=== PATIENT | male | born 1990 | race Caucasian/White ===

== ENCOUNTER 2017-01-11 13:11 | Emergency (ER) | payer OTHER ==
[2017-01-11 13:29] VITALS: BP 157/92
[2017-01-11] MEDS ORDERED: ceFAZolin 1 GM Vial IM ONE (13:44)
--- NOTE | 2017-01-11 13:52 | EDM.PDOC ---
ED HPI GENERAL MEDICAL PROBLEM - General Chief Complaint: Upper Extremity Injury/Pain Stated Complaint: LEFT INDEX FINGER INJURY Time Seen by Provider: 01/11/17 13:36 Source of Information: Reports: Patient History Limitations: Reports: No Limitations - History of Present Illness INITIAL COMMENTS - FREE TEXT/NARRATIVE: Patient is a 26 y/o male who presents to the E.D. complaining of crush injury to the distal phalanx lateral aspect of the left index finger. Patient states while removing a heavy large metal pivot point on the oil rig his affected finger got pinched between two pieces of metal. This occurred approx 2 hrs prior to admission to the E.D. Bone is exposed. Pain is minimal. He is able to flex and extend the dip/pip/mcp of the affected finger. No pain to the remaining fingers and/or hand. Bleeding is controlled with dressing in place. Tetanus status is up to date. PMH: ADHD Medications: Adderall. SH: none stated. No smoking history. Last meal at 0700 hrs this a.m. Left Hand Pain Score (Numeric/FACES): 3 - Related Data Allergies Allergy/AdvReac Type Severity Reaction Status Date / Time No Known Allergies Allergy Verified 01/11/17 13:28 Home Meds: Home Meds Dextroamphetamine/Amphetamine [Adderall 20 mg Tablet] 20 mg PO DAILY 01/11/17 [ History] Past Medical History Musculoskeletal History: Reports: Other (See Below) Other Musculoskeletal History: metal plates to face and elbow - Past Surgical History HEENT Surgical History: Reports: Oral Surgery Social & Family History - Tobacco Use Smoking Status *Q: Current Some Day Smoker Years of Tobacco use: 7 Packs/Tins Daily: 0.1 Second Hand Smoke Exposure: No - Caffeine Use Caffeine Use: Reports: Coffee, Soda - Alcohol Use Days Per Week of Alcohol Use: 2 Number of Drinks Per Day: 2 Total Drinks Per Week: 4 - Recreational Drug Use Recreational Drug Use: No Review of Systems - Review of Systems Review Of Systems: ROS reveals no pertinent complaints other than HPI. ED EXAM, GENERAL - Physical Exam Exam: See Below Exam Limited By: No Limitations General Appearance: Alert, WD/WN, No Apparent Distress Ears: Hearing Grossly Normal Nose: Normal Inspection Throat/Mouth: Normal Voice, No Airway Compromise Respiratory/Chest: No Respiratory Distress, No Accessory Muscle Use Cardiovascular: Normal Peripheral Pulses, Regular Rate, Rhythm Peripheral Pulses: 2+: Radial (R) Extremities: Limited Range of Motion, Other (Left index finger distal tip: Loss of tissue with bone exposed sparing the nail bed. This is located on the lateral aspect of the finger. He is able to flex and extend the DIP and PIP. Minimal pain present. No pain to the remainder fingers or hand.) Neurological: Alert, Oriented, CN II-XII Intact, Normal Cognition, No Motor/ Sensory Deficits Psychiatric: Normal Affect, Normal Mood Course - Vital Signs Last Recorded V/S: Last Vital Signs Temp 98.0 F 01/11/17 13:26 Pulse 70 01/11/17 13:26 Resp 16 01/11/17 13:26 BP 157/92 H 01/11/17 13:26 Pulse Ox 97 01/11/17 13:26 - Orders/Labs/Meds Orders: Active Orders 24 hr Category Date Time Status Fingers Second Digit Lt F1 [CR] Stat Exams 01/11/17 13:44 Taken Meds: Medications Discontinued Medications Generic Name Dose Route Start Last Admin Trade Name Selin PRN Reason Stop Dose Admin Bupivacaine HCl 10 ml 01/11/17 13:55 01/11/17 14:02 Sensorcaine-Mpf 0.5% INJECT 01/11/17 13:56 10 ml ONETIME ONE Administration Cefazolin Sodium 1 gm 01/11/17 13:44 01/11/17 14:02 Ancef IM 01/11/17 13:45 1 gm ONETIME ONE Administration - Re-Assessments/Exams Free Text/Narrative Re-Assessment/Exam: Order x-ray of the left index finger and ancef 1 gram IM. Will perform digital block to mitigate pain present with soaking snd removal of dressing. No ortho building construction supervisor here in [place]. Will contact ortho building construction supervisor at [facility]. Ordered marcaine 0.5% to perform digital block. Please approximate 6 ml of Marcaine to the inferior border of the finger. Patient states he had complete numbness to the finger with no discomfort noted with palpation to the distal tip. 01/11/17 13:[address] Reed with [facility] at [facility]. He will see the patient in the E.D. X-ray will be pushed when available. X-ray did not reveal any acute bony abnormalities. Images pushed to [facility]. Discharge instructions as documented. Departure - Departure Time of Disposition: 13:57 Disposition: DC/Tfer to Acute Hospital 02 Condition: Good Clinical Impression: Laceration of finger Qualifiers: Encounter type: initial encounter Finger: index finger Damage to nail status: without damage Foreign body presence: without foreign body Laterality: left Qualified Code(s): S61.211A - Laceration without foreign body of left index finger without damage to nail, initial encounter - Discharge Information Instructions: Crush Injury, Fingers or Toes, [id number] Referrals: Devonte Reed MD [Ordering Only Provider] - Forms: ED Department Discharge Additional Instructions: Leave dressing and splint in place until evaluated by Dr. Reed in the [facility] in [place] today. Go straight to the E.D. upon discharge from here. Do not eat or drink anything while traveling to [place]. - My Orders Last 24 Hours: My Active Orders 01/11/17 13:44 Fingers Second Digit Lt F1 [CR] Stat - Assessment/Plan Last 24 Hours: My Active Orders 01/11/17 13:44 Fingers Second Digit Lt F1 [CR] Stat
[2017-01-11] MEDS ORDERED: Bupivacaine 0.5% 10 ML SDV INJECT ONE (13:55)
--- NOTE | 2017-01-11 16:55 | CR ---
Left second finger: Four views of the left second finger were obtained. Soft tissue defect identified off the distal second finger. No fracture or other bony abnormality is seen. Impression: 1. Soft tissue defect within the distal left second finger. 2. No acute bony abnormality is identified. Diagnostic code #3
== END 2017-01-11 14:45 ==
LOC: JD.ED 13:11
DX: S61.211A Laceration without foreign body of left index finger without damage to nail, initial encounter (principal); F17.210 Nicotine dependence, cigarettes, uncomplicated; W23.1XXA Caught, crushed, jammed, or pinched between stationary objects, initial encounter
CPT/HCPCS: 64450; 73140; 96372; 99284; J0690

== ENCOUNTER 2019-03-28 11:42 | Emergency (ER) | payer OTHER ==
[2019-03-28 12:33] VITALS: BP 156/108; PULSE 76
--- NOTE | 2019-03-28 12:35 | EDM.PDOC ---
ED HPI GENERAL MEDICAL PROBLEM - General Chief Complaint: Upper Extremity Injury/Pain Stated Complaint: NEEDS PAIN MEDS Time Seen by Provider: 03/28/19 12:26 Source of Information: Reports: Patient History Limitations: Reports: No Limitations - History of Present Illness INITIAL COMMENTS - FREE TEXT/NARRATIVE: The patient presents with left middle finger pain. He recently had a finger amputated in [place] at work. He was seen at the hospital there and sent to [facility]. Dr Posadas reattached the finger. He was given 20 hydrocodones 5mg. They are only helping for a few hours and he is going to run out. His hand and wrist is in a splint. Onset: Sudden Duration: Day(s): Location: Reports: Upper Extremity, Left (middle finger) Quality: Reports: Sharp Severity: Severe Improves with: Reports: None Worsens with: Reports: None Associated Symptoms: Reports: No Other Symptoms Left Hand Pain Score (Numeric/FACES): 7 - Related Data Allergies Allergy/AdvReac Type Severity Reaction Status Date / Time No Known Allergies Allergy Verified 03/28/19 12:25 Home Meds: Home Meds Dextroamphetamine/Amphetamine [Adderall 20 mg Tablet] 20 mg PO DAILY 01/11/17 [ History] Hydrocodone/Acetaminophen [Hydrocodon-Acetaminophen 5-325] 1 tab PO Q6H PRN [History] Stool Softener. 03/28/19 [History] oxyCODONE HCl/Acetaminophen [Percocet 5-325 mg Tablet] 1 - 2 each PO Q6HR PRN # 20 tablet 03/28/19 [Rx] Past Medical History Musculoskeletal History: Reports: Other (See Below) Other Musculoskeletal History: metal plates to face and elbow - Past Surgical History HEENT Surgical History: Reports: Oral Surgery Social & Family History - Caffeine Use Caffeine Use: Reports: Coffee, Soda Review of Systems - Review of Systems Review Of Systems: See Below Constitutional: Reports: No Symptoms Eyes: Reports: No Symptoms Ears: Reports: No Symptoms Nose: Reports: No Symptoms Mouth/Throat: Reports: No Symptoms Respiratory: Reports: No Symptoms Cardiovascular: Reports: No Symptoms GI/Abdominal: Reports: No Symptoms Genitourinary: Reports: No Symptoms Musculoskeletal: Reports: Other (left hand pain) ED EXAM, GENERAL - Physical Exam Exam: See Below Exam Limited By: No Limitations General Appearance: Alert, No Apparent Distress Ears: Normal External Exam Nose: Normal Inspection Head: Atraumatic, Normocephalic Neck: Normal Inspection Respiratory/Chest: No Respiratory Distress Extremities: Other (Left hand and arm is in a splint.) Course - Vital Signs Last Recorded V/S: Last Vital Signs Temp 98.7 F 03/28/19 12:27 Pulse 76 03/28/19 12:27 Resp 16 03/28/19 12:27 BP 156/108 H 03/28/19 12:27 Pulse Ox 98 03/28/19 12:27 - Re-Assessments/Exams Free Text/Narrative Re-Assessment/Exam: 03/28/19 12:35 I will get him some percocets. Departure - Departure Time of Disposition: 12:40 Disposition: Home, Self-Care 01 Condition: Good Clinical Impression: Amputation of left middle finger - Discharge Information *PRESCRIPTION DRUG MONITORING PROGRAM REVIEWED*: No *COPY OF PRESCRIPTION DRUG MONITORING REPORT IN PATIENT ESTEFANY: No Prescriptions: oxyCODONE HCl/Acetaminophen [Percocet 5-325 mg Tablet] 1 - 2 each PO Q6HR PRN # 20 tablet PRN Reason: Pain Referrals: PCP,None [Primary Care Provider] - Forms: ED Department Discharge Additional Instructions: Take your medication as prescribed. Elevate your hand above your heart as much as you can for the next couple of days. Please return if you are worse. Sepsis Event Note - Focused Exam Vital Signs: Vital Signs Temp Pulse Resp BP Pulse Ox 03/28/19 12:27 98.7 F 76 16 156/108 H 98 Date Exam was Performed: 03/28/19 Time Exam was Performed: 12:35
== END 2019-03-28 13:00 | disposition home or self-care (01) ==
LOC: JD.ED 11:42
DX: M79.645 Pain in left finger(s) (principal); Z89.022 Acquired absence of left finger(s)
CPT/HCPCS: 99283

== ENCOUNTER 2020-12-26 10:58 | Emergency (ER) | payer MEDICAID, OTHER | END 2020-12-26 12:00 | disposition left against medical advice (07) | LOC: JD.ED 10:58 | DX: Z53.21 Procedure and treatment not carried out due to patient leaving prior to being seen by health care provider (principal) ==

== ENCOUNTER 2021-01-01 18:41 | Emergency (ER) | payer MEDICAID ==
--- NOTE | 2021-01-01 19:43 | EDM.PDOCBH ---
ED HPI GENERAL MEDICAL PROBLEM - General Chief Complaint: Behavioral/Psych Stated Complaint: DIFFICULTY SLEEPING Time Seen by Provider: 01/01/21 18:48 Source of Information: Reports: Patient, Other ([facility] staff) History Limitations: Reports: No Limitations - History of Present Illness INITIAL COMMENTS - FREE TEXT/NARRATIVE: The patient presents with a staff member from [facility] crisis center for suicidal ideation. The patient works at [employer] and he talked to a provider there and he was referred to [facility]. He was put in their RCC and he was going to see Dr Villar tomorrow. His suicidal thoughts have gotten worse. He plans on shooting himself with a shotgun. He has the shotgun in a locked case and gave it to someone recently. He did suffer some emotional trauma in the past and recently broke up with his long time girlfriend. He would not go into detail about the emotional trauma in the past. He has felt depressed for years. He did try taking some pills this past weekend. He does not remember exactly what they were. He has no fever, chills, cough, chest pain, shortness of breath, abdominal pain, nausea or vomiting. He has no medical problems Onset: Gradual Duration: Week(s): Severity: Severe Improves with: Reports: None Worsens with: Reports: None Associated Symptoms: Reports: No Other Symptoms Headache Pain Score (Numeric/FACES): 3 - Related Data Allergies Allergy/AdvReac Type Severity Reaction Status Date / Time No Known Allergies Allergy Verified 03/28/19 12:25 Home Meds: Home Meds Dextroamphetamine/Amphetamine [Adderall 20 mg Tablet] 20 mg PO DAILY 01/11/17 [History] Hydrocodone/Acetaminophen [Hydrocodon-Acetaminophen 5-325] 1 tab PO Q6H PRN 03/28/19 [History] oxyCODONE HCl/Acetaminophen [Percocet 5-325 mg Tablet] 1 - 2 each PO Q6HR PRN #20 tablet 03/28/19 [Rx] Past Medical History Musculoskeletal History: Reports: Other (See Below) Other Musculoskeletal History: metal plates to face and elbow Psychiatric History: Reports: Anxiety, Depression, Suicidal Ideation Other Psychiatric History: took pain meds on saturday and then vomited them up - Infectious Disease History Infectious Disease History: Reports: Chicken Pox - Past Surgical History HEENT Surgical History: Reports: Oral Surgery Social & Family History - Tobacco Use Tobacco Use Status *Q: Former Tobacco User Used Tobacco, but Quit: Yes Month/Year Tobacco Last Used: yesterday - Caffeine Use Caffeine Use: Reports: Coffee, Soda ED ROS GENERAL - Review of Systems Review Of Systems: See Below Constitutional: Reports: No Symptoms HEENT: Reports: No Symptoms Respiratory: Reports: No Symptoms Cardiovascular: Reports: No Symptoms Endocrine: Reports: No Symptoms GI/Abdominal: Reports: No Symptoms : Reports: No Symptoms Musculoskeletal: Reports: No Symptoms ED EXAM, BEHAVIORAL HEALTH - Physical Exam Exam: See Below Exam Limited By: No Limitations General Appearance: Alert, No Apparent Distress Ears: Normal External Exam Nose: Normal Inspection Head: Atraumatic, Normocephalic Neck: Normal Inspection Respiratory/Chest: No Respiratory Distress, Lungs Clear, Normal Breath Sounds Cardiovascular: Regular Rate, Rhythm, No Edema, No Murmur GI/Abdominal: Soft, Non-Tender, No Organomegaly, No Mass COURSE, BEHAVIORAL HEALTH COMP - Course Orders, Labs, Meds: Active Orders 24 hr Category Date Time Status Cardiac Monitoring [RC] . DIRECTED Care 01/01/21 19:06 Active Suicide Precautions [RC] .Per Facility Policy Care 01/01/21 19:10 Active DRUG SCREEN, URINE [URCHEM] Stat Lab 01/01/21 20:25 Ordered Laboratory Tests 01/01/21 01/01/21 01/01/21 Range/Units 19:12 19:30 19:30 WBC 7.85 (4.23-9.07) K/mm3 RBC 5.11 (4.63-6.08) M/mm3 Hgb 15.8 (13.7-17.5) gm/dl Hct 46.7 (40.1-51.0) % MCV 91.4 D (79.0-92.2) fl MCH 30.9 (25.7-32.2) pg MCHC 33.8 (32.2-35.5) g/dl RDW Std Deviation 40.7 (35.1-43.9) fL Plt Count 260 (163-337) K/mm3 MPV 10.9 (9.4-12.3) fl Neut % (Auto) 64.3 (34.0-67.9) % Lymph % (Auto) 23.7 (21.8-53.1) % Loving % (Auto) 8.2 (5.3-12.2) % Eos % (Auto) 3.1 (0.8-7.0) Baso % (Auto) 0.3 (0.1-1.2) % Neut # (Auto) 5.06 (1.78-5.38) K/mm3 Lymph # (Auto) 1.86 (1.32-3.57) K/mm3 Loving # (Auto) 0.64 (0.30-0.82) K/mm3 Eos # (Auto) 0.24 (0.04-0.54) K/mm3 Baso # (Auto) 0.02 (0.01-0.08) K/mm3 Sodium 142 (136-145) mEq/L Potassium 3.2 L (3.5-5.1) mEq/L Chloride 104 (98-107) mEq/L Carbon Dioxide 28 (21-32) mEq/L Anion Gap 13.2 (5-15) BUN 13 (7-18) mg/dL Creatinine 0.9 (0.7-1.3) mg/dL Est Cr Clr Drug Dosing 120.29 mL/min Estimated GFR (MDRD) > 60 (>60) mL/min BUN/Creatinine Ratio 14.4 (14-18) Glucose 119 H (70-99) mg/dL Calcium 8.5 (8.5-10.1) mg/dL Total Bilirubin 0.2 (0.2-1.0) mg/dL AST 6 L (15-37) U/L ALT 22 (16-63) U/L Alkaline Phosphatase 54 (46-116) U/L Total Protein 7.2 (6.4-8.2) g/dl Albumin 4.1 (3.4-5.0) g/dl Globulin 3.1 gm/dL Albumin/Globulin Ratio 1.3 (1-2) TSH 3rd Generation 0.756 (0.358-3.74) uIU/mL Salicylates (2.8-20) mg/dL Acetaminophen 0 L (10-30) ug/mL Ethyl Alcohol 0.00 (0.00) gm% SARS-CoV-2 RNA (DEVANG) Presumptive positive H (NEGATIVE) 01/01/21 Range/Units 19:30 WBC (4.23-9.07) K/mm3 RBC (4.63-6.08) M/mm3 Hgb (13.7-17.5) gm/dl Hct (40.1-51.0) % MCV (79.0-92.2) fl MCH (25.7-32.2) pg MCHC (32.2-35.5) g/dl RDW Std Deviation (35.1-43.9) fL Plt Count (163-337) K/mm3 MPV (9.4-12.3) fl Neut % (Auto) (34.0-67.9) % Lymph % (Auto) (21.8-53.1) % Loving % (Auto) (5.3-12.2) % Eos % (Auto) (0.8-7.0) Baso % (Auto) (0.1-1.2) % Neut # (Auto) (1.78-5.38) K/mm3 Lymph # (Auto) (1.32-3.57) K/mm3 Loving # (Auto) (0.30-0.82) K/mm3 Eos # (Auto) (0.04-0.54) K/mm3 Baso # (Auto) (0.01-0.08) K/mm3 Sodium (136-145) mEq/L Potassium (3.5-5.1) mEq/L Chloride (98-107) mEq/L Carbon Dioxide (21-32) mEq/L Anion Gap (5-15) BUN (7-18) mg/dL Creatinine (0.7-1.3) mg/dL Est Cr Clr Drug Dosing mL/min Estimated GFR (MDRD) (>60) mL/min BUN/Creatinine Ratio (14-18) Glucose (70-99) mg/dL Calcium (8.5-10.1) mg/dL Total Bilirubin (0.2-1.0) mg/dL AST (15-37) U/L ALT (16-63) U/L Alkaline Phosphatase (46-116) U/L Total Protein (6.4-8.2) g/dl Albumin (3.4-5.0) g/dl Globulin gm/dL Albumin/Globulin Ratio (1-2) TSH 3rd Generation (0.358-3.74) uIU/mL Salicylates 6.1 (2.8-20) mg/dL Acetaminophen (10-30) ug/mL Ethyl Alcohol (0.00) gm% SARS-CoV-2 RNA (DEVANG) (NEGATIVE) Re-Assessment/Re-Exam: I ordered labs, drug screen and a COVID 19 swab. His CBC looks good. His K was a little low at 3.2. His TSH was normal. His salicylates are negative. His acetaminophen is normal. His ETOH was 0. He was COVID 19 positive. He was moved to a room closer to the nurses station. He left AMA. I did not get a chance to go into talk to him. We did not have a hold on him. Departure - Departure Time of Disposition: 20:40 Disposition: Against Medical Advice 07 Condition: Good Clinical Impression: Depressive disorder, Suicidal ideation - Discharge Information *PRESCRIPTION DRUG MONITORING PROGRAM REVIEWED*: Not Applicable *COPY OF PRESCRIPTION DRUG MONITORING REPORT IN PATIENT ESTEFANY: Not Applicable Referrals: Judith Manzo PA-C [Primary Care Provider] - 1 Week Forms: ED Department Discharge Additional Instructions: Follow up with [facility] tomorrow. Please return if you are worse. - My Orders Last 24 Hours: My Active Orders 01/01/21 19:06 Cardiac Monitoring [RC] . DIRECTED 01/01/21 19:10 Suicide Precautions [RC] .Per Facility Policy 01/01/21 20:25 DRUG SCREEN, URINE [URCHEM] Stat - Assessment/Plan Last 24 Hours: My Active Orders 01/01/21 19:06 Cardiac Monitoring [RC] . DIRECTED 01/01/21 19:10 Suicide Precautions [RC] .Per Facility Policy 01/01/21 20:25 DRUG SCREEN, URINE [URCHEM] Stat
[2021-01-01 20:15] LABS: ACETAMINOPHEN 0 ug/mL (10-30)
== END 2021-01-01 20:40 | disposition left against medical advice (07) ==
LOC: JD.ED 18:41
DX: F32.9 Major depressive disorder, single episode, unspecified (principal); U07.1 COVID-19; Z79.899 Other long term (current) drug therapy
CPT/HCPCS: 36415; 80053; 80143; 80179; 80306; 80307; 84443; 85025; 99284; U0002

== ENCOUNTER 2021-01-01 22:19 | Emergency (ER) | payer MEDICAID ==
[2021-01-01 22:39] VITALS: BP 150/104; PULSE 74
--- NOTE | 2021-01-02 02:41 | EDM.PDOCBH ---
ED HPI GENERAL MEDICAL PROBLEM - General Chief Complaint: Behavioral/Psych Stated Complaint: DIFFICULTY SLEEPING Time Seen by Provider: 01/01/21 22:35 Source of Information: Reports: Patient, Provider ([facility] Staff member) History Limitations: Reports: No Limitations - History of Present Illness INITIAL COMMENTS - FREE TEXT/NARRATIVE: The patient was here earlier for depression and suicidal ideation. He left AMA. He has been having depression for awhile. He recently broke up with his girlfriend and he had suicidal ideation. He was going to shoot himself with a shotgun. He had the gun in a case and locked and gave it to a friend. He works at [employer] and talked to a provider there. He was referred to [facility] and they had him in the RCC. He got worse and they brought him here for possible placement. The labs were done along with COVID 19. He was COVID 19 positive. He did not want to be here any more and left. We did not have a hold on him so he left. He contacted [facility] again and they brought him back. He does not have any COVID 19 symptoms nor did he have any a few weeks ago. Onset: Gradual Duration: Week(s): Severity: Moderate Improves with: Reports: None Worsens with: Reports: None Associated Symptoms: Reports: No Other Symptoms - Related Data Allergies Allergy/AdvReac Type Severity Reaction Status Date / Time No Known Allergies Allergy Verified 03/28/19 12:25 Home Meds: Home Meds Dextroamphetamine/Amphetamine [Adderall 20 mg Tablet] 20 mg PO DAILY 01/11/17 [History] Hydrocodone/Acetaminophen [Hydrocodon-Acetaminophen 5-325] 1 tab PO Q6H PRN 03/28/19 [History] oxyCODONE HCl/Acetaminophen [Percocet 5-325 mg Tablet] 1 - 2 each PO Q6HR PRN #20 tablet 03/28/19 [Rx] Past Medical History - Past Health History Medical/Surgical History: Denies Medical/Surgical History Musculoskeletal History: Reports: Other (See Below) Other Musculoskeletal History: metal plates to face and elbow Psychiatric History: Reports: Anxiety, Depression, Suicidal Ideation Other Psychiatric History: took pain meds on saturday and then vomited them up - Infectious Disease History Infectious Disease History: Reports: Chicken Pox, Novel Coronavirus - Past Surgical History HEENT Surgical History: Reports: Oral Surgery Social & Family History - Tobacco Use Tobacco Use Status *Q: Never Tobacco User Second Hand Smoke Exposure: No - Caffeine Use Caffeine Use: Reports: Coffee, Soda ED ROS GENERAL - Review of Systems Review Of Systems: See Below Constitutional: Reports: No Symptoms HEENT: Reports: No Symptoms Respiratory: Reports: No Symptoms Cardiovascular: Reports: No Symptoms Endocrine: Reports: No Symptoms GI/Abdominal: Reports: No Symptoms : Reports: No Symptoms Musculoskeletal: Reports: No Symptoms Skin: Reports: No Symptoms Neurological: Reports: No Symptoms ED EXAM, BEHAVIORAL HEALTH - Physical Exam Exam: See Below Exam Limited By: No Limitations General Appearance: Alert, No Apparent Distress Ears: Normal External Exam Nose: Normal Inspection Head: Atraumatic, Normocephalic Neck: Normal Inspection Respiratory/Chest: No Respiratory Distress, Lungs Clear, Normal Breath Sounds Cardiovascular: Regular Rate, Rhythm, No Edema, No Murmur GI/Abdominal: Soft, Non-Tender, No Organomegaly, No Mass Back Exam: Normal Inspection Extremities: Normal Inspection Neurological: Alert, No Motor/Sensory Deficits, Oriented x 3 COURSE, BEHAVIORAL HEALTH COMP - Course Vital Signs: Last Vital Signs Temp 97.5 F 01/01/21 22:36 Pulse 74 01/01/21 22:36 Resp 20 01/01/21 22:36 BP 150/104 H 01/01/21 22:36 Pulse Ox 97 01/01/21 22:36 Orders, Labs, Meds: Active Orders 24 hr Category Date Time Status Suicide Precautions [RC] Q1H Care 01/02/21 00:00 Active Re-Assessment/Re-Exam: We called [facility] and no one had a bed. [facility] will need to assess him in the morning and contact [facility] and see if they can take a COVID patient. He will go to the residential [facility]. Departure - Departure Time of Disposition: 02:45 Disposition: Home, Self-Care 01 Condition: Good Clinical Impression: Suicidal ideation, Depressive disorder, SARS-CoV-2 positive - Discharge Information *PRESCRIPTION DRUG MONITORING PROGRAM REVIEWED*: Not Applicable *COPY OF PRESCRIPTION DRUG MONITORING REPORT IN PATIENT ESTEFANY: Not Applicable Referrals: Judith Manzo PA-C [Primary Care Provider] - 1 Week Additional Instructions: A medical screening test was done and your are medically cleared to go to the [facility]. [facility] will assess you tomorrow to see if you can to the [facility] in [place]. Sepsis Event Note (ED) - Focused Exam Vital Signs: Vital Signs Temp Pulse Resp BP Pulse Ox 01/01/21 22:36 97.5 F 74 20 150/104 H 97 - My Orders Last 24 Hours: My Active Orders 01/02/21 00:00 Suicide Precautions [RC] Q1H - Assessment/Plan Last 24 Hours: My Active Orders 01/02/21 00:00 Suicide Precautions [RC] Q1H
== END 2021-01-02 02:45 | disposition home or self-care (01) ==
LOC: JD.ED 22:19
DX: U07.1 COVID-19 (principal); F32.9 Major depressive disorder, single episode, unspecified
CPT/HCPCS: 99283; 99284

== ENCOUNTER 2021-01-02 18:38 | Emergency (ER) | payer MEDICAID | END 2021-01-02 18:53 | disposition left against medical advice (07) | LOC: JD.ED 18:38 | DX: Z53.21 Procedure and treatment not carried out due to patient leaving prior to being seen by health care provider (principal) ==

== ENCOUNTER 2021-01-20 09:19 | Emergency (ER) | payer MEDICAID ==
--- NOTE | 2021-01-20 09:45 | EDM.PDOCBH ---
ED HPI GENERAL MEDICAL PROBLEM - General Chief Complaint: Drug or Alcohol Abuse Stated Complaint: ABDOMINAL PAIN/VOMITING Time Seen by Provider: 01/20/21 09:35 Source of Information: Reports: Patient History Limitations: Reports: No Limitations - History of Present Illness INITIAL COMMENTS - FREE TEXT/NARRATIVE: Patient is a 30-year-old male presenting to the emergency room with a chief complaint of suicidal ideations and overdose. Patient states that around 9 or 10:00 last night, he took approximately 18 Tylenol with a significant amount of alcohol. This was an attempt to end his life after he had a difficult encounter with a ex-girlfriend. Patient reports considerable abdominal pain which is most severe in the right upper quadrant. He feels nauseated but is not currently vomiting. Denies any additional ingestion with other drugs or other attempts of self-harm. Patient does have previous history of self-harm and suffers from PTSD and depression. Patient was attempting to go to rehab today but they informed him he needed to come here to the emergency room first. Abdominal Pain Score (Numeric/FACES): 8 - Related Data Allergies Allergy/AdvReac Type Severity Reaction Status Date / Time No Known Allergies Allergy Verified 01/20/21 09:30 Home Meds: Home Meds Dextroamphetamine/Amphetamine [Adderall 20 mg Tablet] 15 mg PO DAILY 01/11/17 [History] Past Medical History - Past Health History Medical/Surgical History: Denies Medical/Surgical History Musculoskeletal History: Reports: Other (See Below) Other Musculoskeletal History: metal plates to face and elbow Psychiatric History: Reports: Anxiety, Depression, Suicidal Ideation Other Psychiatric History: took pain meds on saturday and then vomited them up - Infectious Disease History Infectious Disease History: Reports: Chicken Pox, Novel Coronavirus - Past Surgical History HEENT Surgical History: Reports: Oral Surgery Social & Family History - Tobacco Use Tobacco Use Status *Q: Current Every Day Tobacco User Years of Tobacco use: 2 Packs/Tins Daily: 1 - Caffeine Use Caffeine Use: Reports: Coffee - Alcohol Use Days Per Week of Alcohol Use: 7 Number of Drinks Per Day: 5 Total Drinks Per Week: 35 - Recreational Drug Use Recreational Drug Use: Yes Recreational Drug Type: Reports: Marijuana/Hashish ED ROS GENERAL - Review of Systems Review Of Systems: See Below Free Text/Narrative/Comment: In addition to that documented in the HPI above, the additional ROS was obtained: Constitutional: Denies fevers or chills Eyes: Denies vision changes ENMT: Denies sore throat CV: Denies chest pain Resp: Denies SOB GI: Per HPI : Denies painful urination MSK: Denies recent trauma Skin: Denies new rashes Neuro: Denies new numbness or tingling or weakness Endocrine: Denies unexpected weight loss Heme: Denies bleeding disorders ED EXAM, BEHAVIORAL HEALTH - Physical Exam Exam: See Below Text/Narrative:: I have reviewed the triage vital signs Const: Well nourished, well developed, appears stated age. Resting with eyes closed. Eyes did not open while talking to me during interview. Eyes do open on request. Eyes: Pupils Equal and reactive to light bilaterally, no conjunctival injection HENT: No signs of trauma or swelling, Neck supple without meningismus CV: Regular Rate Rhythm, Warm, well-perfused extremities RESP: Unlabored respiratory effort GI: soft, non-tender, non-distended, no masses MSK: No gross deformities appreciated Skin: Warm, dry. No rashes Neuro: Alert, water proofer II-XII grossly intact. Sensation and motor function of extremities grossly intact. Psych: Flat affect COURSE, BEHAVIORAL HEALTH COMP - Course Vital Signs: Last Vital Signs Temp 36.5 C 01/20/21 14:00 Pulse 66 01/20/21 14:00 Resp 20 01/20/21 11:07 BP 144/87 H 01/20/21 14:00 Pulse Ox 98 01/20/21 14:00 Orders, Labs, Meds: Active Orders 24 hr Category Date Time Status Suicide Precautions [RC] Q1HR Care 01/20/21 09:34 Active CORONAVIRUS COVID-19 DEVANG [MOLEC] Stat Lab 01/20/21 10:36 Ordered Laboratory Tests 01/20/21 01/20/21 01/20/21 Range/Units 09:45 09:45 09:45 WBC 6.02 (4.23-9.07) K/mm3 RBC 4.94 (4.63-6.08) M/mm3 Hgb 15.3 (13.7-17.5) gm/dl Hct 45.7 (40.1-51.0) % MCV 92.5 H (79.0-92.2) fl MCH 31.0 (25.7-32.2) pg MCHC 33.5 (32.2-35.5) g/dl RDW Std Deviation 42.9 (35.1-43.9) fL Plt Count 261 (163-337) K/mm3 MPV 11.2 (9.4-12.3) fl Neut % (Auto) 68.5 H (34.0-67.9) % Lymph % (Auto) 19.1 L (21.8-53.1) % Pope % (Auto) 8.1 (5.3-12.2) % Eos % (Auto) 3.3 (0.8-7.0) Baso % (Auto) 0.5 (0.1-1.2) % Neut # (Auto) 4.12 (1.78-5.38) K/mm3 Lymph # (Auto) 1.15 L (1.32-3.57) K/mm3 Pope # (Auto) 0.49 (0.30-0.82) K/mm3 Eos # (Auto) 0.20 (0.04-0.54) K/mm3 Baso # (Auto) 0.03 (0.01-0.08) K/mm3 PT 11.7 (9.7-12.0) SECONDS INR 1.06 Sodium 138 (136-145) mEq/L Potassium 3.7 (3.5-5.1) mEq/L Chloride 103 (98-107) mEq/L Carbon Dioxide 25 (21-32) mEq/L Anion Gap 13.7 (5-15) BUN 10 (7-18) mg/dL Creatinine 0.8 (0.7-1.3) mg/dL Est Cr Clr Drug Dosing 132.30 mL/min Estimated GFR (MDRD) > 60 (>60) mL/min BUN/Creatinine Ratio 12.5 L (14-18) Glucose 90 (70-99) mg/dL Lactic Acid (0.4-2.0) mmol/L Calcium 8.6 (8.5-10.1) mg/dL Total Bilirubin 0.6 (0.2-1.0) mg/dL AST 25 (15-37) U/L ALT 23 (16-63) U/L Alkaline Phosphatase 33 L (46-116) U/L Total Protein 6.7 (6.4-8.2) g/dl Albumin 4.1 (3.4-5.0) g/dl Globulin 2.6 gm/dL Albumin/Globulin Ratio 1.6 (1-2) Lipase 60 L (73-393) U/L Salicylates (2.8-20) mg/dL Urine Opiates Screen (NYVMNZ=921) Ur Buprenorphine Scrn (CUTOFF=10) Ur Oxycodone Screen (ESO0RE=219) Urine Methadone Screen (RWU9OR=706) Ur Propoxyphene Screen (WQVSHP=273) Acetaminophen 17 (10-30) ug/mL Ur Barbiturates Screen (DYDCSR=457) Ur Tricyclics Screen (YRKAYW=657) Ur Phencyclidine Scrn (CUTOFF=25) Ur Amphetamine Screen (FBQPRE=223) U Methamphetamines Scrn (XUYPWL=674) U Benzodiazepines Scrn (ZVZZUL=248) U Cocaine Metab Screen (ZLMGGW=341) U Marijuana (THC) Screen (CUTOFF=50) Ethyl Alcohol 0.00 (0.00) gm% 01/20/21 01/20/21 01/20/21 Range/Units 09:45 09:45 12:15 WBC (4.23-9.07) K/mm3 RBC (4.63-6.08) M/mm3 Hgb (13.7-17.5) gm/dl Hct (40.1-51.0) % MCV (79.0-92.2) fl MCH (25.7-32.2) pg MCHC (32.2-35.5) g/dl RDW Std Deviation (35.1-43.9) fL Plt Count (163-337) K/mm3 MPV (9.4-12.3) fl Neut % (Auto) (34.0-67.9) % Lymph % (Auto) (21.8-53.1) % Pope % (Auto) (5.3-12.2) % Eos % (Auto) (0.8-7.0) Baso % (Auto) (0.1-1.2) % Neut # (Auto) (1.78-5.38) K/mm3 Lymph # (Auto) (1.32-3.57) K/mm3 Pope # (Auto) (0.30-0.82) K/mm3 Eos # (Auto) (0.04-0.54) K/mm3 Baso # (Auto) (0.01-0.08) K/mm3 PT (9.7-12.0) SECONDS INR Sodium (136-145) mEq/L Potassium (3.5-5.1) mEq/L Chloride (98-107) mEq/L Carbon Dioxide (21-32) mEq/L Anion Gap (5-15) BUN (7-18) mg/dL Creatinine (0.7-1.3) mg/dL Est Cr Clr Drug Dosing mL/min Estimated GFR (MDRD) (>60) mL/min BUN/Creatinine Ratio (14-18) Glucose (70-99) mg/dL Lactic Acid 0.6 (0.4-2.0) mmol/L Calcium (8.5-10.1) mg/dL Total Bilirubin (0.2-1.0) mg/dL AST (15-37) U/L ALT (16-63) U/L Alkaline Phosphatase (46-116) U/L Total Protein (6.4-8.2) g/dl Albumin (3.4-5.0) g/dl Globulin gm/dL Albumin/Globulin Ratio (1-2) Lipase (73-393) U/L Salicylates 0.8 L (2.8-20) mg/dL Urine Opiates Screen Negative (YPUVVV=008) Ur Buprenorphine Scrn Negative (CUTOFF=10) Ur Oxycodone Screen Negative (HCY9ME=114) Urine Methadone Screen Negative (PKP8QW=332) Ur Propoxyphene Screen Negative (FXCHIG=360) Acetaminophen (10-30) ug/mL Ur Barbiturates Screen Negative (GOFITB=944) Ur Tricyclics Screen Negative (TTDYWK=820) Ur Phencyclidine Scrn Negative (CUTOFF=25) Ur Amphetamine Screen Presumptive positive H (ZECJCE=858) U Methamphetamines Scrn Negative (KURPYH=321) U Benzodiazepines Scrn Negative (LDOVAO=930) U Cocaine Metab Screen Negative (GMEBGB=077) U Marijuana (THC) Screen Negative (CUTOFF=50) Ethyl Alcohol (0.00) gm% 01/20/21 Range/Units 13:36 WBC (4.23-9.07) K/mm3 RBC (4.63-6.08) M/mm3 Hgb (13.7-17.5) gm/dl Hct (40.1-51.0) % MCV (79.0-92.2) fl MCH (25.7-32.2) pg MCHC (32.2-35.5) g/dl RDW Std Deviation (35.1-43.9) fL Plt Count (163-337) K/mm3 MPV (9.4-12.3) fl Neut % (Auto) (34.0-67.9) % Lymph % (Auto) (21.8-53.1) % Pope % (Auto) (5.3-12.2) % Eos % (Auto) (0.8-7.0) Baso % (Auto) (0.1-1.2) % Neut # (Auto) (1.78-5.38) K/mm3 Lymph # (Auto) (1.32-3.57) K/mm3 Pope # (Auto) (0.30-0.82) K/mm3 Eos # (Auto) (0.04-0.54) K/mm3 Baso # (Auto) (0.01-0.08) K/mm3 PT (9.7-12.0) SECONDS INR Sodium (136-145) mEq/L Potassium (3.5-5.1) mEq/L Chloride (98-107) mEq/L Carbon Dioxide (21-32) mEq/L Anion Gap (5-15) BUN (7-18) mg/dL Creatinine (0.7-1.3) mg/dL Est Cr Clr Drug Dosing mL/min Estimated GFR (MDRD) (>60) mL/min BUN/Creatinine Ratio (14-18) Glucose (70-99) mg/dL Lactic Acid (0.4-2.0) mmol/L Calcium (8.5-10.1) mg/dL Total Bilirubin (0.2-1.0) mg/dL AST (15-37) U/L ALT (16-63) U/L Alkaline Phosphatase (46-116) U/L Total Protein (6.4-8.2) g/dl Albumin (3.4-5.0) g/dl Globulin gm/dL Albumin/Globulin Ratio (1-2) Lipase (73-393) U/L Salicylates (2.8-20) mg/dL Urine Opiates Screen (RPLUOP=466) Ur Buprenorphine Scrn (CUTOFF=10) Ur Oxycodone Screen (EDW7NV=695) Urine Methadone Screen (GCV9WT=999) Ur Propoxyphene Screen (GQRLZE=467) Acetaminophen 7 L (10-30) ug/mL Ur Barbiturates Screen (WCGXBQ=293) Ur Tricyclics Screen (TGALMQ=604) Ur Phencyclidine Scrn (CUTOFF=25) Ur Amphetamine Screen (EWOSYL=704) U Methamphetamines Scrn (JZVKJF=617) U Benzodiazepines Scrn (VRPSKU=802) U Cocaine Metab Screen (YXOIBH=645) U Marijuana (THC) Screen (CUTOFF=50) Ethyl Alcohol (0.00) gm% Departure - Departure Time of Disposition: 14:00 Disposition: DC/Tfer to Psych Hosp/Unit 65 Clinical Impression: Alcohol abuse, Suicidal ideations - Discharge Information *PRESCRIPTION DRUG MONITORING PROGRAM REVIEWED*: Not Applicable *COPY OF PRESCRIPTION DRUG MONITORING REPORT IN PATIENT ESTEFANY: Not Applicable Referrals: PCP,None [Primary Care Provider] - Forms: ED Department Discharge Sepsis Event Note (ED) - Focused Exam Vital Signs: Vital Signs Temp Pulse Resp BP Pulse Ox 01/20/21 14:00 36.5 C 66 144/87 H 98 01/20/21 12:57 62 124/84 98 01/20/21 11:55 65 131/83 100 01/20/21 11:07 69 20 112/72 98 01/20/21 09:30 36.1 C 74 18 144/98 H 97 - My Orders Last 24 Hours: My Active Orders 01/20/21 09:34 Suicide Precautions [RC] Q1HR 01/20/21 10:36 CORONAVIRUS COVID-19 DEVANG [MOLEC] Stat - Assessment/Plan Last 24 Hours: My Active Orders 01/20/21 09:34 Suicide Precautions [RC] Q1HR 01/20/21 10:36 CORONAVIRUS COVID-19 DEVANG [MOLEC] Stat Assessment:: Patient is 30-year-old male presenting to the emergency room with a chief complaint of suicidal ideations and overdose of Tylenol. Patient observed in the emergency room for several hours. Patient labs revealed no toxic level of Tylenol at 0 and 4 hours. No evidence of hepatic damage. No other ingestions noted based on clinical exam and laboratory exam. At this point, patient is medically cleared and stable. He will require further psychiatric evaluation. Patient will be transferred via law enforcement to [facility] for further evaluation and management of psychiatric and alcohol abuse issues. All questions were addressed and answered.
[2021-01-20 10:28] LABS: ACETAMINOPHEN 17 ug/mL (10-30)
[2021-01-20 15:17] VITALS: BP 140/93; PULSE 79
== END 2021-01-20 15:22 ==
LOC: JD.ED 09:19
DX: R45.851 Suicidal ideations (principal); F10.10 Alcohol abuse, uncomplicated; Z72.0 Tobacco use; Z86.16 Personal history of COVID-19
CPT/HCPCS: 36415; 80053; 80143; 80179; 80306; 80307; 83605; 83690; 85025; 85610; 93005; 99285-25